=== PATIENT | female | born 1965 | race Caucasian/White ===

== ENCOUNTER 2023-02-05 14:07 | Emergency (ER) | payer MEDICARE, SELFPAY ==
--- NOTE | 2023-02-05 14:22 | ED.URI ---
HPI - URI/Sore Throat General Chief Complaint: Upper Respiratory Infection Stated Complaint: Runny Nose Time Seen by Provider: 02/05/23 14:25 Source: patient Mode of arrival: ambulatory Limitations: no limitations History of Present Illness HPI Narrative: Scott is a 57-year-old female patient presenting to the clinic today with complaints of runny nose, postnasal drip, and cough x6 months. She denies any headache, fever, or chills. She denies any sinus pressure. Just states she has been sneezing a lot. Just moved to the area and does not have a PCP. MD elicited complaint: cough and nasal congestion Related Data Allergies Allergy/AdvReac Type Severity Reaction Status Date / Time No Known Allergies Allergy Verified 02/05/23 14:30 Review of Systems Review of Systems: Pertinent positives per HPI. Patient denies any fever, chills, rash, headache, visual changes, dizziness, shortness of breath, chest pain, palpitations, nausea, vomiting, diarrhea, constipation, abdominal pain, or any urinary issues. PMFSH Comments At the time of my signature, I reviewed and agree with the nursing past medical, surgical, social, and family history. There is no relevant family history pertinent to the patient complaint. Exam Narrative: General: Well-developed, well nourished, in no apparent distress Head: Normocephalic, atraumatic Eyes: Pupils equally round and reactive to light bilaterally, EOM intact, sclera and conjunctive clear, no discharge, lids normal Ears: TMs intact and clear, ear canals clear, no drainage, grossly hearing normal. Nose: Nares patent, clear discharge, mild inflammation, no sinus tenderness. Mouth: Oral pharynx without lesions or masses, good dentition, MMM. Postnasal drip Neck: Supple, trachea midline, no enlargement of anterior or posterior cervical nodes, no thyroid masses or goiter palpable. Cardio: Regular rate and rhythm, s1 and s2 normal, no murmur appreciated. Resp: Clear to auscultation bilaterally, no rhonchi, rales, wheezing or rubs Course Course Emergency Course: Portions of this record may have been created with voice recognition software. Level of Care: Express Care Visit Vital Signs Vital signs: Vital signs reviewed MDM - URI/Sore Throat MDM Narrative Medical decision making narrative: At the time of visit patient is resting comfortably on the exam table. I suspect patient has allergic rhinitis with postnasal drip. Patient does not have any sinus tenderness and nasal drainage has been clear. Prescription for prednisone with 40 mg daily x5 days and a prescription for Zyrtec was given to the patient. Supportive measures were discussed with the patient and she voiced understanding discharge instructions and agrees to treatment plan. Differential Diagnosis Differential diagnosis: Likely upper respiratory infection, otitis media, sinusitis, viral infection, bronchitis, influenza, pharyngitis and other (COVID, allergic rhinitis) Discharge Plan Discharge Clinical Impression: PND (post-nasal drip) Allergic rhinitis Qualifiers: Allergic rhinitis trigger: unspecified Allergic rhinitis seasonality: non-seasonal Qualified Code(s): J30.89 - Other allergic rhinitis Patient Disposition: Home, Self-Care Condition: Stable Instructions: Antibiotic Form, Allergies (ED), Postnasal Drip (DC) Additional Instructions: Take prescription medications only as prescribed-prednisone and Zyrtec Increase fluids and stay well hydrated Tylenol/motrin for pain/fever Flonase and OTC antihistamines as directed Vicks vapor rub to open sinuses Sinus rinses for congestion Cepacol spray, cough drops, throat lozenges, warm tea with honey/lemon, gargle salt water to soothe throat BRAT diet for diarrhea Clear liquids x 24 hours then advance as tolerated for nausea/vomiting Go to the ED if you develop a worsening in your condition- high fever not controlled by Tylenol or Motrin, dehydratio
[2023-02-05 14:31] VITALS: BP 151/90; PULSE 88; RESP 20; TEMP 36.6; O2SAT 100
== END 2023-02-05 14:37 | disposition home or self-care (01) ==
PROVIDERS: Emergency Provider Nurse Practitioner Family
DX: R09.82 Postnasal drip (principal); J30.89 Other allergic rhinitis; I10 Essential (primary) hypertension
CPT/HCPCS: 99213; G0463

== ENCOUNTER 2023-03-16 12:00 | Emergency (ER) | payer MEDICARE, SELFPAY ==
[2023-03-16 12:06] VITALS: BP 132/83; PULSE 96; RESP 16; TEMP 36.9; O2SAT 95
--- NOTE | 2023-03-16 13:34 | ED.URI ---
HPI - URI/Sore Throat General Chief Complaint: Upper Respiratory Infection Stated Complaint: throat Time Seen by Provider: 03/16/23 13:25 Source: patient, RN notes reviewed and old records reviewed Mode of arrival: ambulatory Limitations: no limitations History of Present Illness HPI Narrative: 57 year old female who presents to [facility] care with complaints of sore throat, cough with yellow mucous production for the past few days. Patient states that she was treated at [facility] 2 weeks ago for Bronchitis and completed medications that were ordered. Patient reports that throat is very sore and she has been treating it with some whiskey, doesn't have any money for medication to take OTC. Patient reports that she has some soreness to her right foot and ankle denies any injury requesting felisha bandage states she doesn't have money to buy one. Patient reports history of hypertension, anxiety and depression and Bipolar disease but doesn't know names of her medications. She states that she is from [place] and has been staying in area for the holidays. Patient reports that she smokes 1ppd of cigarettes for many years. MD elicited complaint: cough, sore throat, rhinorrhea and nasal congestion Pertinent past history: other (bronchitis, tobacco abuse) Onset (ago): day(s) (2-3) Consistency: constant Pain scale (0-10): 8 Description of mucous: yellow Able to tolerate fluids by mouth: Yes Exacerbating factors: swallowing Treatments prior to arrival: other (whiskey) Related Data Allergies Allergy/AdvReac Type Severity Reaction Status Date / Time No Known Allergies Allergy Verified 03/16/23 12:43 Review of Systems Review of Systems: CONSTITUTIONAL: Denies malaise, chills, sweats, or fever. EYES: Denies visual changes, redness, or discharge. ENT: Reports rhinorrhea, congestion,no sinus pain, no otalgia and positive for sore throat. CARDIOVASCULAR: Denies chest pain, palpitations, or edema. RESPIRATORY: Reports cough.? Denies dyspnea. GASTROINTESTINAL: Denies abdominal pain, nausea, vomiting, diarrhea SKIN: Denies rash or itching. MUSCULOSKELETAL: Denies myalgia.reports some discomfort to right foot and ankle denies any injury requests felisha wrap ambulates with steady gait NEUROLOGIC: Denies headache. All systems reviewed & are unremarkable except as noted in HPI and below PMFSH Past Medical History Medical History (Updated 03/17/23 @ 13:13 by Elizabeth Wallace NP) Anxiety and depression Bipolar disease, chronic Hypertension Social History Social History (Updated 03/17/23 @ 13:14 by Elizabeth Wallace NP) Smoking packs per day: 1 Smoking cigarettes per day: 20.0 Smoking status: Current every day smoker Tobacco type: cigarettes Alcohol intake: current Substance use type: does not use Gender identity (if verbalized by the patient): Female Comments At time of signature, agree with nursing past medical, surgical, social and family history. There is no relevant family history pertinent to the presenting complaint Exam Narrative: GENERAL: Well-appearing, well-nourished, and in no acute distress. HEAD: Normocephalic EYES: PERRLA, conjunctivae clear ENT: Nares clear, turbinates edematous and erythematous, clear discharge. Mucous membranes moist. TM pearly frances with dull light reflex bilaterally; no tragal tenderness. Oropharynx erythematous without lesions. Tonsils red not enlarged and without exudate, no drooling, no hoarseness, no trismus, uvula midline, post nasal drainage. NECK: Supple. No lymphadenopathy CHEST:Coarse breath sounds with scattered wheezing on auscultation,, breath sounds equal,positive for wheezing,no rhonchi, rales, or stridor. No respiratory distress, speaks in full sentences.cough noted SAO2 95% on room air HEART: Regular rate and rhythm. No murmur heard. SKIN: Warm, dry, no rash. NEURO: Alert and oriented x3. PSYCH: Normal mood and affect Course Course
== END 2023-03-16 13:50 | disposition home or self-care (01) ==
PROVIDERS: Emergency Provider Registered Nurse
DX: J40 Bronchitis, not specified as acute or chronic (principal); F17.210 Nicotine dependence, cigarettes, uncomplicated; I10 Essential (primary) hypertension
CPT/HCPCS: 87081; 87880; 99213; G0463